=== PATIENT | female | born 1945 | race Caucasian/White ===

== ENCOUNTER 2016-11-22 23:22 | Inpatient (IN) | payer MEDICARE, MEDICAID ==
[~2016-11-22] VITALS: Ht 162.6 cm; Wt 57.6 kg
[~2016-11-22 23:22] MED LIST: ALEN70TA30 PO; AMLO2.5T78 PO; BENZ1TAB7 PO; CHOL200073 PO; DOCU-144 PO; MAGN296S40 PO; MELO-216 PO; NAPR-688 PO; ONDA4TAB35 PO; POLY17PO6 PO; ROTI1PAT7 TD; SIMV10TA PO
[2016-11-23] MEDS ORDERED: ASPIRIN 325 MG TAB PO ONE (00:10)
[2016-11-23 00:13] LABS: BASOPHILS % 0.3 % (0.0-2.0); EOSINOPHILS # 0.1 10^3/ul (0.0-0.5); HEMATOCRIT 36.8 % (37.0-47.0); HEMOGLOBIN 12.3 g/dl (12.0-16.0); LYMPHOCYTES # 2.9 10^3/ul (0.8-2.9); LYMPHOCYTES % 31.7 % (15.0-51.0); MEAN CORPUSCULAR HEMOGLOBIN 30.3 pg (29.0-33.0); MEAN CORPUSCULAR HGB CONC 33.4 g/dl (32.0-37.0); MEAN CORPUSCULAR VOLUME 90.6 fl (82.0-101.0); MEAN PLATELET VOLUME 10.4 fl (7.4-10.4); MONOCYTE # 0.8 10^3/ul (0.3-0.9); MONOCYTES % 8.3 % (0.0-11.0); NEUTROPHIL # 5.3 10^3/ul (1.6-7.5); NEUTROPHILS % 58.4 % (39.0-77.0); PLATELET COUNT 355 10^3/UL (140-415); RED BLOOD COUNT 4.06 10^6/ul (4.20-5.40); RED CELL DISTRIBUTION WIDTH 12.6 % (11.5-14.5); WHITE BLOOD COUNT 9.1 10^3/ul (4.8-10.8)
--- NOTE | 2016-11-23 00:32 | RADRPT ---
PROCEDURE: XR Chest. CLINICAL INDICATION: Chest pain. TECHNIQUE: Single frontal view. COMPARISON: None. FINDINGS: The lungs are clear. The heart size is normal. There is no pleural effusion. There is no pneumothorax. IMPRESSION: 1. Normal chest radiograph. RPTAT: QQ .Danny Elam MD, Date Time Electronically viewed and signed by .Danny Elam MD, on 11/23/2016 00:31 .R/
[2016-11-23 00:37] LABS: ANION GAP 13 (8-16); BLOOD UREA NITROGEN 12 mg/dl (7-20); CALCIUM 9.9 mg/dl (8.4-10.2); CARBON DIOXIDE 24 mmol/L (21-31); CHLORIDE 100 mmol/L (97-110); CREATININE 0.69 mg/dl (0.44-1.00); GLUCOSE 95 mg/dl (70-220); POTASSIUM 4.2 mmol/L (3.5-5.1); SODIUM 133 mmol/L (135-144)
[2016-11-23 00:49] LABS: B-TYPE NATRIURETIC PEPTIDE 133 PG/ML (0-125)
[2016-11-23 00:50] LABS: TROPONIN-I < 0.012 ng/ml (0.00-0.12)
[2016-11-23 01:13] LABS: AADO2 Arterial 60.9 mmHg (7.0-24.0); Allen Test ACCEPTAB; Arterial Base Excess -0.4 mmol/L (-3.0-3); Arterial COHb 0.3 % (0.0-3.0); Arterial Fraction of Oxyhgb 98.2 % (93.0-99.0); Arterial HCO3 17.5 mmol/L (22.0-26.0); Arterial MetHb 0.1 % (0.0-1.5); Arterial Total Hemglobin 13.4 g/dl (12.0-18.0); MODE NASAL CANNULA
[2016-11-23] MEDS ORDERED: LORAZEPAM 2 MG INJ IV ONE (01:30)
[2016-11-23] MEDS ORDERED: SOD CHLORIDE 0.9% 100 ML ONE (01:41)
[2016-11-23] MEDS ORDERED: IOHEXOL 100 ML ONE (01:41)
[2016-11-23] MEDS ORDERED: SOD CHLORIDE 0.9% 500 ML IV ONE (02:00)
--- NOTE | 2016-11-23 04:10 | RADRPT ---
PROCEDURE: CT angiogram of the chest with contrast. CLINICAL INDICATION: Respiratory distress, tachypnea. TECHNIQUE: CT angiogram of the chest was obtained using a multi-detector high-resolution CT. Con tiguous axial images were obtained during the dynamic injection of 85 cc of Omnipaque 350 intravenou s contrast. Coronal and sagittal reformatted images were obtained. 3-D reformatted images were als o obtained. Images were reviewed on a PACS workstation. One or more of the following dose reduction techniques were used: - Automated exposure control. - Adjustment of the mA and/or kV according to patient size. - Use of iterative reconstruction technique. Exam CTD/vol = 7.17 mGy. Total exam DLP = 273.75 mGy-cm. COMPARISON: None. FINDINGS: The main pulmonary artery followed to the segmental divisions are well opacified. There is no filli ng defect or evidence of pulmonary embolism. The heart is normal in size. There is no pericardial thickening or effusion. The aorta is of normal course and caliber with mild scattered atherosclerot ic calcifications. There is no evidence of aortic aneurysm or dissection. There is no evidence of chest wall mass. The visualized thyroid is unremarkable. There are no enla rged axillary lymph nodes. There are no enlarged mediastinal or hilar lymph nodes by CT criteria. There is no parenchymal nodule or consolidation. There is no pleural effusion. The central tracheo bronchial tree is within normal limits. There is a mild compression deformity of the T6 and vertebral body with up to 10% loss in vertebral body height. There is a mild compression deformity of the T8 vertebral body with up to 30% loss in v ertebral body height. There is no bony retropulsion. Limited evaluation of the upper abdomen demonst rates a hypodense lesion within the left lobe of the liver measuring 2.0 x 1.6 cm. There is moderate retained stool within the colon. IMPRESSION: No evidence of pulmonary embolism or aortic dissection. Mild vascular calcifications reflective of atherosclerosis. Mild compression deformities of T6 and T8 vertebral bodies, ages indeterminate. Hypodense lesion within the left lobe of the liver could represent a cyst or hemangioma, unchanged f rom 05/04/2015. Moderate retained stool within the colon. .Darryl Macias, MD, MD Date Time Electronically viewed and signed by .Darryl Macias MD, MD on 11/23/2016 04:09 .T/
[2016-11-23] MEDS ORDERED: ASPI-535 PO (05:25)
[2016-11-23] MEDS ORDERED: CARV3.1260 PO (05:27)
[2016-11-23] MEDS ORDERED: LOSA50TA6 PO (05:27)
[2016-11-23] MEDS ORDERED: ATOR20TA38 PO (05:28)
[2016-11-23] MEDS ORDERED: RASA0.5T PO (05:28)
--- NOTE | 2016-11-23 05:28 | ERA ---
ER Documentation Chief Complaint Date/Time DATE: 11/23/16 TIME: 05:22 Chief Complaint chest pain w/ braden since 20 minutes ago HPI This 71-year-old female presents with chest pain and shortness of breath that began suddenly 20 minutes ago. She is coming by family members. She states that she had on and off nausea as well. Exposing this is never happened to her before. She has no history of anxiety. She is currently hyperventilating at bedside and says she cannot breathe. No fever chills or trauma. ROS All systems reviewed and are negative except as per history of present illness. Medications Home Meds Active Scripts Ondansetron Hcl* (Zofran* ODT) 4 mg -ODT Tab.disper, 4 MG PO Q4H Y for NAUSEA AND OR VOMITING, #20 TAB Prov:MELQUIADES OSBORN DO 05/04/15 Naproxen* (Naproxen*) 500 Mg Tablet, 500 MG PO BID Y for PAIN, #14 TAB Prov:MELQUIADES OSBORN DO 05/04/15 Docusate Sodium* (Colace*) 100 Mg Capsule, 100 MG PO BID, #60 CAP Prov:MELQUIADES OSBORN DO 05/04/15 Magnesium Citrate* (Magnesium Citrate*) 296 Ml Solution, 296 ML PO ONCE, #1 BOTTLE Prov:MELQUIADES OSBORN DO 05/04/15 Polyethylene Glycol* (Miralax*) 17 Gm Powd.pack, 17 GM PO DAILY, #7 Prov:MELQUIADES OSBORN DO 05/04/15 Reported Medications Amlodipine Besylate* (Amlodipine Besylate*) 2.5 Mg Tablet, 2.5 MG PO DAILY, #30 TAB 05/04/15 Rotigotine (NEUPRO) 1 Each Patch.td24, 1 EACH TD DAILY 05/04/15 Benztropine Mesylate* (Benztropine Mesylate*) 1 Mg Tablet, 1 MG PO TID, TAB 05/04/15 Simvastatin* (Zocor*) 10 Mg Tablet, 10 MG PO QHS, #30 TAB 05/04/15 Cholecalciferol (Vitamin D3) (VITAMIN D-3) 2,000 Unit Capsule, 2000 UNIT PO DAILY, CAP 05/04/15 Meloxicam* (Meloxicam*) 7.5 Mg Tablet, 7.5 MG PO DAILY Y for PAIN, TAB 05/04/15 Alendronate Sodium* (Fosamax*) 70 Mg Tablet, 70 MG PO Q7D, TAB 05/04/15 Allergies Allergies: Coded Allergies: No Known Allergy (Unverified , 05/04/15) PMhx/Soc History of Surgery: Yes (gallbladder) Hx Cardiac Disorders: Yes (htn) Hx Miscellaneous Medical Probl: Yes (parkinsons) Hx Alcohol Use: No Hx Substance Use: No Hx Tobacco Use: No Smoking Status: Never smoker Physical Exam Vitals Vital Signs Date Time Temp Pulse Resp B/P Pulse Ox O2 Delivery O2 Flow Rate FiO2 11/23/16 04:31 98.1 83 22 155/82 100 Room Air 11/23/16 00:06 98.2 82 31 165/81 100 Room Air 11/22/16 23:25 98.2 86 20 156/5 100 Physical Exam Const: [] Moderate distress, hyperventilating. Head: Atraumatic Eyes: Normal Conjunctiva ENT: Normal External Ears, Nose and Mouth. Neck: Full range of motion..~ No meningismus. Resp: Clear to auscultation bilaterally, tachypnea Cardio: Regular rate and rhythm, no murmurs Abd: Soft, non tender, non distended. Normal bowel sounds Skin: No petechiae or rashes Back: No midline or flank tenderness Ext: No cyanosis, or edema, distal pulses intact all 4 extremities Neur: Awake and alert and oriented 3, no focal deficits Psych: Anxious Result Diagram: 11/22/16 2358 11/22/16 2358 Results 24 hrs Laboratory Tests Test 11/22/16 23:58 11/23/16 00:14 White Blood Count 9.110^3/ul Red Blood Count 4.0610^6/ul Hemoglobin 12.3g/dl Hematocrit 36.8% Mean Corpuscular Volume 90.6fl Mean Corpuscular Hemoglobin 30.3pg Mean Corpuscular Hemoglobin Concent 33.4g/dl Red Cell Distribution Width 12.6% Platelet Count 59977^3/UL Mean Platelet Volume 10.4fl Neutrophils % 58.4% Lymphocytes % 31.7% Monocytes % 8.3% Eosinophils % 1.0% Basophils % 0.3% Nucleated Red Blood Cells % 0.0/100WBC Neutrophils # 5.310^3/ul Lymphocytes # 2.910^3/ul Monocytes # 0.810^3/ul Eosinophils # 0.110^3/ul Basophils # 0.010^3/ul Nucleated Red Blood Cells # 0.010^3/ul Sodium Level 133mmol/L Potassium Level 4.2mmol/L Chloride Level 100mmol/L Carbon Dioxide Level 24mmol/L Anion Gap 13 Blood Urea Nitrogen 12mg/dl Creatinine 0.69mg/dl Glucose Level 95mg/dl Calcium Level 9.9mg/dl Troponin I < 0.012ng/ml B-Type Natriuretic Peptide 133PG/ML Blood Gas Specimen Source Blood arterial Arterial Blood Date Drawn 11/23/2016 1:00:08 AM Arterial Blood pH (Temp corrected) 7.656 Arterial Blood pCO2 (Temp correct) 16.0mmhg Arterial Blood pO2 (Temp corrected) 112.7mmHG Arterial Blood HCO3 17.5mmol/L Arterial Blood Base Excess -0.4mmol/L Arterial Blood Oxygen Saturation 98.6mmHG Jose Test ACCEPTAB Arterial Blood Gas Puncture Site Right Radial Arterial Blood Carboxyhemoglobin 0.3% Arterial Blood Methemoglobin 0.1% Blood Gas A-a O2 Differential 60.9mmHg Oxyhemoglobin Percent 98.2% Total Hemoglobin 13.4g/dl Blood Gas Temperature 37.0C Blood Gas Modality NASAL CANNULA FiO2 27.0% Blood Gas Critical Value Read Back J IRENA DO Blood Gas Notified Whom UP Blood Gas Notified Time 11/23/2016 1:13:07 AM Current Medications Medications (Trade) Dose Ordered Sig/[place] Route PRN Reason Start Time Stop Time Status Last Admin Dose Admin Aspirin (Aspirin) 325 mg ONCE ONCE PO 11/23/16 00:10 11/23/16 00:11 DC 11/23/16 00:58 Lorazepam (Ativan) 1 mg ONCE ONCE IV 11/23/16 01:30 11/23/16 01:31 DC 11/23/16 02:19 IV Flush 10 ml 10 ml STK-MED ONCE .ROUTE 11/23/16 01:41 11/23/16 01:42 DC 11/23/16 02:03 Sodium Chloride 100 ml @ ud STK-MED ONCE .ROUTE 11/23/16 01:41 11/23/16 01:42 DC 11/23/16 02:03 Iohexol 100 ml @ ud STK-MED ONCE .ROUTE 11/23/16 01:41 11/23/16 01:42 DC 11/23/16 02:03 Sodium Chloride (NS) 500 ml @ 500 mls/hr Q1H ONCE IV 11/23/16 02:00 11/23/16 02:59 DC 11/23/16 02:00 Ondansetron HCl (Zofran Inj) 4 mg ER BRIDGE PRN IV NAUSEA AND/OR VOMITING 11/23/16 05:30 11/24/16 05:29 Acetaminophen (Tylenol Tab) 650 mg ER BRIDGE PRN PO MILD PAIN/FEVER 11/23/16 05:30 11/24/16 05:29 Procedures/MDM Elderly female with acute onset of chest pain. Respiratory alkalosis on ABG. Initial troponin is negative and EKG has no signs of acute ischemia. CT was performed to rule out PE and no pulmonary embolism is identified. No dissection. She was given aspirin and placed on oxygen. According to family and patient she has not had any advanced cardiac testing recently. She is going to be admitted to telemetry, according to family's wishes. She will receive serial trending of troponins. She was also given 1 mg of Ativan which did calm her down although she still had mild tachypnea. EKG interpretation: Normal sinus rhythm, normal axis, normal intervals, no ST or T-wave changes concerning for acute ischemia. Normal EKG media monitor interpretation: Normal sinus rhythm without arrhythmia Chest x-ray interpretation: I see no acute process, see no Renetta, no palmar edema, pneumothorax, no fractur CTA chest interpretation: No pulmonary embolism or dissection, no obvious lung pathology such as pneumonia or pulmonary edema or pneumothorax. No fractures. Departure Diagnosis: Primary Impression: Chest pain Additional Impressions: Respiratory distress Respiratory alkalosis Condition: Stable IRENAKANUMELQUIADES DO Nov 23, 2016 05:28
[2016-11-23] MEDS ORDERED: ACETAMINOPHEN 325 MG TAB PO PRN ×2 (05:30→09:00)
[2016-11-23] MEDS ORDERED: ONDANSETRON 4 MG INJ IV PRN ×2 (05:30→09:00)
[2016-11-23 06:29] LABS: CK-MB 2.76 ng/ml (0.0-2.4); TROPONIN-I 0.022 ng/ml (0.00-0.12)
[2016-11-23 06:32] VITALS: TEMP 98.5
[2016-11-23] MEDS ORDERED: NACL 0.9% 3 ML SYG IV SCH (09:00)
[2016-11-23] MEDS ORDERED: morphine 2 MG INJ IV PRN (09:00)
[2016-11-23] MEDS ORDERED: NITROGLYCERIN (SL) 0.4 MG TAB SL PRN (09:00)
[2016-11-23] MEDS ORDERED: ALENDRONATE 70 MG TAB PO SCH (09:00)
[2016-11-23] MEDS ORDERED: ALBUTEROL/IPRATROPIUM (NEB) 3 ML AMP HHN PRN (09:00)
--- NOTE | 2016-11-23 09:23 | HP ---
Date/Time of Note Date/Time of Note DATE: 11/23/16 TIME: 09:19 Assessment/Plan VTE Prophylaxis VTE Prophylaxis Intervention: heparin Lines/Catheters IV Catheter Type (from Nrsg): Saline Lock Assessment/Plan Assessment/Plan Assessment 71-year-old female with a history of hypertension, dyslipidemia, Parkinson's disease, osteoporosis, Brain aneurysm who presented with left sided abd pain, SOB and dry throat Plan Obtain CT abd/pelvis Bowel regimen CT pulmonary angiogram was negative for PE Although less likely, will r/o ACS. Trend troponin and place Supplemental oxygen , aspirin, beta-ksenia, statin with as needed nitro and morphine Breathing treatments as needed 2D echo HPI/ROS Admit Date/Time Admit Date/Time Hx of Present Illness This is a 71-year-old female with a history of hypertension, dyslipidemia, Parkinson's disease, osteoporosis and Brain aneurysm who was brought to the ER for shortness of breath, abd pain and dry throat. Symptoms started 5 days ago. Abd pain is left sided associated with nausea and nonbilious and bloody vomiting. She said the dry throat caused SOB and she was hyperventilating for a while. Denied chest pain even though I was told by ER that she came for CP and SOB. She has difficulty walking because of parkinson's. When she presented to the ER, ABG showed pH of 7.6, PCO2 16, PO2 112, bicarb 17.5. CT pulmonary angiogram was done and it was negative for PE. EKG was no ST-T wave abnormalities and first troponin is negative PMH/Family/Social Social History Smoking Status: Never smoker Exam/Review of Systems Vital Signs Vitals Vital Signs Date Time Temp Pulse Resp B/P Pulse Ox O2 Delivery O2 Flow Rate FiO2 11/23/16 06:32 98.5 106 20 133/83 100 Room Air 11/23/16 06:00 2.0 28 Exam Constitutional: other (No acute distress) Head: atraumatic, normocephalic Eyes: EOMI, PERRL Respiratory: clear to auscultation, normal air movement Cardiovascular: nl pulses, regular rate and rhythm Gastrointestinal: non-tender, soft Extremities: normal pulses Labs Result Diagram: 11/22/16 5811 11/22/16 0981 Medications Medications Current Medications Ondansetron HCl (Zofran Inj) 4 mg Q6H PRN IV NAUSEA AND/OR VOMITING; Start at 09:00 Nitroglycerin (Nitroglycerin (Sl Tab) 0.4 Mg) 1 tab Q5M PRN SL CHEST PAIN; Start 11/23/16 at 09:00 Acetaminophen (Tylenol Tab) 650 mg Q6H PRN PO PAIN LEVEL 1-3 OR FEVER; Start at 09:00 Morphine Sulfate (morphine) 2 mg Q4H PRN IV PAIN LEVEL 7-10; Start 11/23/16 at 09:00 Enoxaparin Sodium (Lovenox) 40 mg DAILY SC ; Start 11/23/16 at 09:00 Heparin Sodium (Porcine) (Heparin (5000 Units/0.5 ml)) 5,000 unit Q12 SC ; Start 11/23/16 at 09:00 Alendronate Sodium (Fosamax) 70 mg Q7D PO ; Start 11/23/16 at 09:00; Status UNV Amlodipine Besylate (Norvasc) 2.5 mg DAILY PO ; Start 11/23/16 at 09:00 Aspirin (Halfprin) 81 mg DAILY PO ; Start 11/23/16 at 09:00 Atorvastatin Calcium (Lipitor) 20 mg QHS PO ; Start 11/23/16 at 21:00 Carvedilol (Coreg) 3.125 mg BID PO ; Start 11/23/16 at 09:00 Cholecalciferol (Vitamin D) 2,000 unit DAILY PO ; Start 11/23/16 at 09:00 Losartan Potassium (Cozaar) 50 mg DAILY PO ; Start 11/23/16 at 09:00 Rasagiline (Azilect) 0.5 mg DAILY PO ; Start 11/23/16 at 09:00 ADELAIDA MICHELLE MD Nov 23, 2016 09:23
[2016-11-23] MEDS ORDERED: MAGNESIUM HYDROXIDE 30ML CUP PO ONE (09:30)
[2016-11-23] MEDS ORDERED: SOD CHLORIDE 0.9% 1,000 ML IV SCH (10:00)
[2016-11-23] MEDS: RASAGILINE MESYLATE 1 MG TAB PO SCH (10:21)
[2016-11-23] MEDS: LOSARTAN 50 MG TAB PO SCH (10:22)
[2016-11-23] MEDS: ASPIRIN (EC) 81 MG TAB PO SCH (10:23)
[2016-11-23] MEDS: CHOLECALCIFEROL 2,000 UNIT CAP PO SCH (10:25)
[2016-11-23] MEDS: AMLODIPINE 2.5 MG TAB PO SCH (10:25)
[2016-11-23] MEDS: ENOXAPARIN 40 MG/0.4 ML SYG SC SCH (10:25)
[2016-11-23] MEDS: SENNA TAB PO SCH (10:26)
[2016-11-23] MEDS: HEPARIN 5,000 UNIT/0.5 ML VIAL SC SCH ×2 (10:27→20:31)
--- NOTE | 2016-11-23 12:51 | RADRPT ---
PROCEDURE: CT abdomen and pelvis without contrast. CLINICAL INDICATION: Left-sided abdominal pain TECHNIQUE: CT scan of the abdomen and pelvis without contrast was performed and is reconstructed a t 2.5 mm contiguous axial intervals from the dome of the diaphragm to the inferior pubic rami.. The patient was scanned without intravenous contrast. Sagittal and coronal reformatted images were obt ained from the axial source images. The calculated radiation dose measures 800 mGy centimeters. The CTDI measures 16 mGy. Individualized dose optimization technique was used for the performance of this exam. This included 1. Automated exposure control. 2. Adjustment of the mA and / or kV according to the patient's size. 3. Use of iterative reconstructed technique. COMPARISON: CT abdomen pelvis May 04, 2015 FINDINGS: The lung bases are clear of any infiltrate or nodule. No effusion is seen. The liver is of normal size, contour and attenuation with no solid mass or ductal dilatation. 1.5 cm cyst is seen in the left lobe of the liver. gallbladder has been removed. No splenic, adrenal or p ancreatic abnormalities present. Kidneys are of normal size and contour. No hydronephrosis, calculus or masses seen. Retained contr ast is present within the intrarenal collecting systems, ureters and lumen of the bladder secondary to recent CT pulmonary angiogram. Ureters are of normal course and caliber with no stone. No bladd er mass or stone is present. Uterus and ovaries are normal. There is no aneurysm. No adenopathy is present. No bowel mass or obstruction is present. The appendix is normal. No phlegmon, ascites or pneumop eritoneum is visualized. There are bilateral pars defects of L5 with 6 mm anterolisthesis of L5 on S1. Noted is L5-S1 degener ative disc narrowing. IMPRESSION: No evidence of urolithiasis, obstructive uropathy, diverticulitis or appendicitis. Bilateral pars defects L5 with 6 mm anterolisthesis. Hepatic cyst. .John Cope MD, MD Date Time Electronically viewed and signed by .John Cope MD, MD on 11/23/2016 12:51 .A/
[2016-11-23 13:41] LABS: CREATINE KINASE 1096 IU/L (23-200)
[2016-11-23 13:52] LABS: CK-MB 2.17 ng/ml (0.0-2.4)
[2016-11-23 13:53] LABS: TROPONIN-I < 0.012 ng/ml (0.00-0.12)
[2016-11-23 14:00] VITALS: BP 145/83; PULSE 96; RESP 20; Ht 162.6 cm; Wt 57.6 kg
[2016-11-23 14:32] VITALS: PULSE 104
[2016-11-23 16:06] LABS: ALBUMIN 4.2 g/dl (3.3-4.9); BILIRUBIN,INDIRECT 0.3 mg/dl (0-1.1); BILIRUBIN,TOTAL 0.3 mg/dl (0.2-1.3); TOTAL PROTEIN 7.3 g/dl (6.1-8.1)
[2016-11-23 16:13] VITALS: PULSE 85
[2016-11-23 18:35] LABS: CREATINE KINASE 900 IU/L (23-200)
[2016-11-23 18:47] LABS: CK-MB 1.67 ng/ml (0.0-2.4)
[2016-11-23 18:48] LABS: TROPONIN-I < 0.012 ng/ml (0.00-0.12)
[2016-11-23 20:21] VITALS: BP 102/60; PULSE 90; RESP 18
[2016-11-23 20:29] VITALS: PULSE 81
[2016-11-23] MEDS: ATORVASTATIN 20 MG TAB PO SCH (20:29)
[2016-11-24] VITALS (9 sets, daily range): BP systolic 110–149; BP diastolic 56–70; PULSE 75–85; RESP 16–20
[2016-11-24 00:36] LABS: CREATINE KINASE 624 IU/L (23-200)
[2016-11-24 00:50] LABS: CK-MB 1.04 ng/ml (0.0-2.4)
[2016-11-24 01:13] LABS: TROPONIN-I < 0.012 ng/ml (0.00-0.12)
[2016-11-24 09:09] LABS: BASOPHILS % 0.4 % (0.0-2.0); EOSINOPHILS # 0.1 10^3/ul (0.0-0.5); EOSINOPHILS % 1.1 % (0.0-7.0); HEMATOCRIT 36.5 % (37.0-47.0); HEMOGLOBIN 11.6 g/dl (12.0-16.0); LYMPHOCYTES # 2.2 10^3/ul (0.8-2.9); LYMPHOCYTES % 26.9 % (15.0-51.0); MEAN CORPUSCULAR HEMOGLOBIN 29.5 pg (29.0-33.0); MEAN CORPUSCULAR HGB CONC 31.8 g/dl (32.0-37.0); MEAN CORPUSCULAR VOLUME 92.9 fl (82.0-101.0); MEAN PLATELET VOLUME 10.6 fl (7.4-10.4); MONOCYTE # 0.6 10^3/ul (0.3-0.9); MONOCYTES % 7.6 % (0.0-11.0); NEUTROPHIL # 5.1 10^3/ul (1.6-7.5); NEUTROPHILS % 63.9 % (39.0-77.0); PLATELET COUNT 333 10^3/UL (140-415); RED BLOOD COUNT 3.93 10^6/ul (4.20-5.40); RED CELL DISTRIBUTION WIDTH 13.2 % (11.5-14.5)
[2016-11-24 09:28] LABS: ALBUMIN 3.6 g/dl (3.3-4.9); ALBUMIN/GLOBULIN RATIO 1.05; BILIRUBIN,INDIRECT 0.3 mg/dl (0-1.1); BILIRUBIN,TOTAL 0.3 mg/dl (0.2-1.3); CALCIUM 8.8 mg/dl (8.4-10.2); CHOL/HDL RATIO 1.8 RATIO; CREATININE 0.81 mg/dl (0.44-1.00); MAGNESIUM 2.4 mg/dl (1.7-2.5); POTASSIUM 4.4 mmol/L (3.5-5.1)
[2016-11-24 09:57] LABS: THYROID STIMULATING HORMONE 1.24 MIU/L (0.465-4.680)
[2016-11-24] MEDS: SENNA TAB PO SCH (10:03)
[2016-11-24] MEDS: AMLODIPINE 2.5 MG TAB PO SCH (10:03)
[2016-11-24] MEDS: ASPIRIN (EC) 81 MG TAB PO SCH (10:03)
[2016-11-24] MEDS: CHOLECALCIFEROL 2,000 UNIT CAP PO SCH (10:04)
[2016-11-24] MEDS: RASAGILINE MESYLATE 1 MG TAB PO SCH (10:05)
[2016-11-24] MEDS: LOSARTAN 50 MG TAB PO SCH (10:09)
[2016-11-24] MEDS: ENOXAPARIN 40 MG/0.4 ML SYG SC SCH (11:18)
--- NOTE | 2016-11-24 15:42 | PN ---
Date/Time of Note Date/Time of Note DATE: 11/24/16 TIME: 15:40 Assessment/Plan VTE Prophylaxis VTE Prophylaxis Intervention: LMWH Lines/Catheters IV Catheter Type (from Nrsg): Saline Lock Assessment/Plan Chief Complaint/Hosp Course 71 yo female with h/o CAD, Parksinsons disease, osteoporosis who preseneted with nausea and vomiting now resolved CV: - Continue home meds - No evidence of ACS by biomarkers or EKG Nausea/vomiting: - Resolved, unclear etiology - Supportive care Parkinsons disease: - Continue home meds Stable for discharge home tomorrow Problems: Subjective 24 Hr Interval Summary Free Text/Dictation No more nausea or vomiting No chest symptoms Does have some very localizing point tendernes in l lateral chest wall Tolreating PO Normal BMs Wants to stay another day Exam/Review of Systems Vital Signs Vitals Vital Signs Date Time Temp Pulse Resp B/P Pulse Ox O2 Delivery O2 Flow Rate FiO2 11/24/16 15:28 98.8 81 18 135/70 98 11/24/16 05:00 Room Air 11/23/16 06:00 2.0 28 Intake and Output 11/23/16 11/23/16 11/24/16 15:00 23:00 07:00 Intake Total 220 ml Balance 220 ml Exam AOx3, pleasant Resting tremor pill rolling in LUE Ambulating aruodn her room Point tenderness in L lateral rib Constitutional: alert, oriented, well developed Psych: nl mood/affect, no complaints Head: atraumatic, normocephalic Eyes: EOMI, PERRL, nl conjunctiva, nl lids, nl sclera ENMT: nl external ears & nose, nl lips & teeth, nl nasal mucosa & septum Neck: non-tender, supple Respiratory: clear to auscultation, normal air movement Cardiovascular: nl pulses, regular rate and rhythm Gastrointestinal: nl liver, spleen, non-tender, soft Musculoskeletal: nl extremities to inspection, nl gait and stance Extremities: normal pulses Neurological: [employer] II-XII intact, nl mental status, nl speech, nl strength Skin: nl turgor, No rash or lesions Lymph: nl lymph nodes Results Result Diagram: 11/24/1682311/24/16 0824 Results 24 hrs Laboratory Tests Test 11/23/16 17:55 11/24/16 08:24 Creatine Kinase 900 H Creatine Kinase Index 0.2 Creatinine Kinase MB (Mass) 1.67 Troponin I < 0.012 White Blood Count 8.0 Red Blood Count 3.93 L Hemoglobin 11.6 L Hematocrit 36.5 L Mean Corpuscular Volume 92.9 Mean Corpuscular Hemoglobin 29.5 Mean Corpuscular Hemoglobin Concent 31.8 L Red Cell Distribution Width 13.2 Platelet Count 333 Mean Platelet Volume 10.6 H Neutrophils % 63.9 Lymphocytes % 26.9 Monocytes % 7.6 Eosinophils % 1.1 Basophils % 0.4 Nucleated Red Blood Cells % 0.0 Neutrophils # 5.1 Lymphocytes # 2.2 Monocytes # 0.6 Eosinophils # 0.1 Basophils # 0.0 Nucleated Red Blood Cells # 0.0 Sodium Level 138 Potassium Level 4.4 Chloride Level 107 Carbon Dioxide Level 27 Anion Gap 8 Blood Urea Nitrogen 17 Creatinine 0.81 Glucose Level 90 Hemoglobin A1c 5.3 Calcium Level 8.8 Phosphorus Level 3.3 Magnesium Level 2.4 Total Bilirubin 0.3 Direct Bilirubin 0.00 Indirect Bilirubin 0.3 Aspartate Amino Transf (AST/SGOT) 29 Alanine Aminotransferase (ALT/SGPT) 33 Alkaline Phosphatase 69 Total Protein 7.0 Albumin 3.6 Globulin 3.40 H Albumin/Globulin Ratio 1.05 Triglycerides Level 55 Cholesterol Level 146 LDL Cholesterol, Calculated 55 HDL Cholesterol 80 Cholesterol/HDL Ratio 1.8 Thyroid Stimulating Hormone (TSH) 1.240 Medications Medications Current Medications Ondansetron HCl (Zofran Inj) 4 mg Q6H PRN IV NAUSEA AND/OR VOMITING; Start at 09:00 Nitroglycerin (Nitroglycerin (Sl Tab) 0.4 Mg) 1 tab Q5M PRN SL CHEST PAIN; Start 11/23/16 at 09:00 Acetaminophen (Tylenol Tab) 650 mg Q6H PRN PO PAIN LEVEL 1-3 OR FEVER; Start at 09:00 Morphine Sulfate (morphine) 2 mg Q4H PRN IV PAIN LEVEL 7-10 Last administered on 11/24/16 11:11; Admin Dose 2 MG; Start 11/23/16 at 09:00 Enoxaparin Sodium (Lovenox) 40 mg DAILY SC Last administered on 11/24/16 11:18 ; Admin Dose 40 MG; Start 11/23/16 at 09:00 Amlodipine Besylate (Norvasc) 2.5 mg DAILY PO Last administered on 11/24/16 10 :03; Admin Dose 2.5 MG; Start 11/23/16 at 09:00 Aspirin (Halfprin) 81 mg DAILY PO Last administered on 11/24/16 10:03; Admin Dose 81 MG; Start 11/23/16 at 09:00 Atorvastatin Calcium (Lipitor) 20 mg QHS PO Last administered on 11/23/16 20: 29; Admin Dose 20 MG; Start 11/23/16 at 21:00 Carvedilol (Coreg) 3.125 mg BID PO Last administered on 11/24/16 10:04; Admin Dose 3.125 MG; Start 11/23/16 at 09:00 Cholecalciferol (Vitamin D) 2,000 unit DAILY PO Last administered on 11/24/16 10:04; Admin Dose 2,000 UNIT; Start 11/23/16 at 09:00 Losartan Potassium (Cozaar) 50 mg DAILY PO Last administered on 11/24/16 10:09 ; Admin Dose 50 MG; Start 11/23/16 at 09:00 Rasagiline (Azilect) 0.5 mg DAILY PO Last administered on 11/24/16 10:05; Admin Dose 0.5 MG; Start 11/23/16 at 09:00 Senna (Senokot) 2 tab DAILY PO Last administered on 11/24/16 10:03; Admin Dose 2 TAB; Start 11/23/16 at 09:30 Alendronate Sodium (Fosamax) 70 mg Q7D PO ; Start 11/25/16 at 06:00 JOSE BARROW MD Nov 24, 2016 15:42
[2016-11-24] MEDS: ATORVASTATIN 20 MG TAB PO SCH (20:35)
[2016-11-25] VITALS (11 sets, daily range): BP systolic 105–138; BP diastolic 52–75; PULSE 68–100; RESP 18–20
[2016-11-25] MEDS ORDERED: ALENDRONATE 70 MG TAB PO SCH (06:00)
[2016-11-25] MEDS: LOSARTAN 50 MG TAB PO SCH (08:38)
[2016-11-25] MEDS: RASAGILINE MESYLATE 1 MG TAB PO SCH (08:38)
[2016-11-25] MEDS: SENNA TAB PO SCH (08:38)
[2016-11-25] MEDS: ASPIRIN (EC) 81 MG TAB PO SCH (08:38)
[2016-11-25] MEDS: AMLODIPINE 2.5 MG TAB PO SCH (08:39)
[2016-11-25] MEDS: CHOLECALCIFEROL 2,000 UNIT CAP PO SCH (08:39)
[2016-11-25] MEDS: ENOXAPARIN 40 MG/0.4 ML SYG SC SCH (08:40)
--- NOTE | 2016-11-25 15:42 | PDOCDIS ---
Discharge Instructions DIAGNOSIS Discharge Diagnosis Gastroenteritis CONDITION Patient Condition: Good HOME CARE INSTRUCTIONS: Diet Instructions: RegularSpecial Diet: CARDIAC DIET JOSE BARROW MD Nov 25, 2016 15:42
--- NOTE | 2016-11-25 17:37 | DS ---
Date/Time of Note Date/Time of Note DATE: 11/25/16 TIME: 17:37 Discharge Summary Admission/Discharge Info Admit Date/Time Nov 23, 2016 at 05:20 Discharge Date/Time Nov 25, 2016 at 17:19 Discharge Diagnosis Gastroenteritis Patient Condition: Good Hx of Present Illness This is a 71-year-old female with a history of hypertension, dyslipidemia, Parkinson's disease, osteoporosis and Brain aneurysm who was brought to the ER for shortness of breath, abd pain and dry throat. Symptoms started 5 days ago. Abd pain is left sided associated with nausea and nonbilious and bloody vomiting. She said the dry throat caused SOB and she was hyperventilating for a while. Denied chest pain even though I was told by ER that she came for CP and SOB. She has difficulty walking because of parkinson's. When she presented to the ER, ABG showed pH of 7.6, PCO2 16, PO2 112, bicarb 17.5. CT pulmonary angiogram was done and it was negative for PE. EKG was no ST-T wave abnormalities and first troponin is negative Hospital Course 71 yo female with h/o CAD, Parksinsons disease, osteoporosis who preseneted with nausea and vomiting now resolved She was ruled out for ACS wtih biomarkers and EKG Nausea and vomiting resolved spontaneously Patient felt well by followign laurent and was discharged home to self retirement Meds Reported Medications Rasagiline Mesylate* (Azilect*) 0.5 Mg Tablet, 0.5 MG PO DAILY, TAB 11/23/16 Atorvastatin Calcium* (Atorvastatin Calcium*) 20 Mg Tablet, 20 MG PO QHS, #30 TAB 11/23/16 Carvedilol* (Carvedilol*) 3.125 Mg Tablet, 3.125 MG PO BID, #60 TAB 11/23/16 Losartan Potassium* (Losartan Potassium*) 50 Mg Tablet, 50 MG PO DAILY, TAB TAKE 1.5 TABS DAILY 11/23/16 Aspirin Ec (Aspir 81) 81 Mg Tablet.dr, 81 MG PO DAILY, #30 TAB 11/23/16 Amlodipine Besylate* (Amlodipine Besylate*) 2.5 Mg Tablet, 2.5 MG PO DAILY, #30 TAB 05/04/15 Rotigotine (NEUPRO) 1 Each Patch.td24, 1 EACH TD DAILY 05/04/15 Cholecalciferol (Vitamin D3) (VITAMIN D-3) 2,000 Unit Capsule, 2000 UNIT PO DAILY, CAP 05/04/15 Alendronate Sodium* (Fosamax*) 70 Mg Tablet, 70 MG PO Q7D, TAB 05/04/15 Discontinued Reported Medications Benztropine Mesylate* (Benztropine Mesylate*) 1 Mg Tablet, 1 MG PO TID, TAB 05/04/15 Simvastatin* (Zocor*) 10 Mg Tablet, 10 MG PO QHS, #30 TAB 05/04/15 Meloxicam* (Meloxicam*) 7.5 Mg Tablet, 7.5 MG PO DAILY Y for PAIN, TAB 05/04/15 Discontinued Scripts Ondansetron Hcl* (Zofran* ODT) 4 mg -ODT Tab.disper, 4 MG PO Q4H Y for NAUSEA AND OR VOMITING, #20 TAB Prov:MELQUIADES OSBORN DO 05/04/15 Naproxen* (Naproxen*) 500 Mg Tablet, 500 MG PO BID Y for PAIN, #14 TAB Prov:MELQUIADES OSBORN DO 05/04/15 Docusate Sodium* (Colace*) 100 Mg Capsule, 100 MG PO BID, #60 CAP Prov:MELQUIADES OSBORN DO 05/04/15 Magnesium Citrate* (Magnesium Citrate*) 296 Ml Solution, 296 ML PO ONCE, #1 BOTTLE Prov:MELQUIADES OSBORN DO 05/04/15 Polyethylene Glycol* (Miralax*) 17 Gm Powd.pack, 17 GM PO DAILY, #7 Prov:MELQUIADES OSBORN DO 05/04/15 Primary Care Provider Not On Staff Doctor JOSE BARROW MD Nov 25, 2016 17:37
--- NOTE | 2016-11-25 22:39 | RADRPT ---
Echocardiogram Report Patient Name: BARBIE WANG Gender: Female Date: 1945 Study Date: 24-Nov-2016 [employer] Installer: BARON Location: E Ref. Physician: ADELAIDA MICHELLE Quality: Adequate Procedures: Transthoracic echocardiogram with 2D, M-Mode, and Doppler examination, no subcostal images. Indications: Chest Pain. 2D/M Mode Doppler Measurement Value Normal Ranges Measurement Value Normal Ranges AoR Diam MM 2.8 cm AV Peak El 1.0 m/sec LVIDd 2D 3.7 3.5 - 5.6 cm AV Peak PG 4.3 mmHg LVIDs 2D 2.2 2.1 - 4.1 cm LVOT Peak El 0.9 m/sec LVPWd 2D 1.0 0.6 - 1.1 cm LVOT Peak PG 3.5 mmHg IVSd 2D 1.0 0.6 - 1.1 cm MV E Peak El 0.5 m/sec EDV 2D 59.7 cm3 MV A Peak El 0.7 m/sec ESV 2D 11.4 cm3 MV E/A 0.8 LA Dimen 2D 3.2 2.3 - 4.0 cm MV Decel Time 281 msec MV Decel [place] 2 MV E/A 0.8 TR Peak El 2.3 m/sec TR Peak PG 20.6 mmHg PV Peak El 1.0 m/sec PV Peak PG 4.0 mmHg RVSP 23.6 mmHg Findings Left Ventricle: Normal left ventricular systolic function. Normal left ventricular cavity size. Normal left ventricular wall thickness. Ejection fraction is visually estimated at 65 %. Tissue Doppler/Mitral Doppler indices are consistent with impaired relaxation (Stage I diastolic dysfunction). Right Ventricle: Normal right ventricular size. Normal right ventricular systolic function. Left Atrium: The left atrium is normal in size. Right Atrium: The right atrium is normal in size. Mitral Valve: Normal appearance and function of the mitral valve with trace physiologic regurgitation. Aortic Valve: Normal appearance of the aortic valve. No significant aortic stenosis or insufficiency. Tricuspid Valve: Normal appearance of the tricuspid valve. Estimated peak PA systolic pressure 24 mmHg. There is trace tricuspid regurgitation. Pulmonic Valve: Normal pulmonic valve appearance. No evidence of pulmonic regurgitation. Pericardium: Normal pericardium with no significant pericardial effusion. Aorta: Normal aortic root. IVC: The IVC is not well visualized. Pulmonary Artery: Normal pulmonary artery size. Conclusions Normal left ventricular systolic function. Normal left ventricular cavity size. Normal left ventricular wall thickness. Ejection fraction is visually estimated at 65 %. Tissue Doppler/Mitral Doppler indices are consistent with impaired relaxation (Stage I diastolic dysfunction). Normal right ventricular size. Normal right ventricular systolic function. The left atrium is normal in size. The right atrium is normal in size. No significant valvular stenosis or regurgitation seen. Normal pericardium with no significant pericardial effusion. Electronically Signed By: Brendan Escobar 25-Nov-2016 22:38:[id number] -[id number] Patient Name: BARBIE WANG Study Date: 24-Nov-2016 [id number]
== END 2016-11-25 17:19 | disposition home or self-care (01) | DRG 392 ==
LOC: E/R 23:22 → MS4 11-23 05:20
PROVIDERS: ADMIT Internal Medicine; ATTEND Internal Medicine
DX: R11.2 Nausea with vomiting, unspecified (principal); G20 Parkinson's disease; R10.9 Unspecified abdominal pain; I10 Essential (primary) hypertension; E78.5 Hyperlipidemia, unspecified; I25.10 Atherosclerotic heart disease of native coronary artery without angina pectoris; M81.0 Age-related osteoporosis without current pathological fracture; Z86.79 Personal history of other diseases of the circulatory system
CPT/HCPCS: 36415; 36600; 71010; 71275; 74176; 80048; 80053; 80061; 80076; 82550; 82553; 82803; 83036; 83735; 83880; 84100; 84443; 84484; 85025; 93005; 93306; 96372; 96374; J1644; J1650; J2060; J2270; J7030; J7040; Q9967

== ENCOUNTER 2017-04-23 11:10 | Day surgery (SDC) | END 2017-04-23 14:37 | disposition home or self-care (01) ==

== ENCOUNTER 2017-06-24 06:14 | Day surgery (SDC) | END 2017-06-24 11:12 | disposition home or self-care (01) ==

== ENCOUNTER 2017-09-30 19:42 | Emergency (ER) | END 2017-10-01 02:53 | disposition home or self-care (01) ==